=== PATIENT | female | born 1995 | race Caucasian/White ===

== ENCOUNTER 2018-01-01 20:31 | Emergency (ER) | payer OTHER ==
[~2018-01-01] VITALS: Ht 167.6 cm; Wt 60.7 kg
[2018-01-01 20:37] VITALS: TEMP 37; Ht 167.6 cm; Wt 60.7 kg
[2018-01-01] MEDS ORDERED: LISD40CA PO (21:13)
[2018-01-01] MEDS ORDERED: ALPR1TAB3 PO (21:14)
--- NOTE | 2018-01-01 21:14 | EMERGENCY ROOM VISIT NOTE ---
ED Visit Note First contact with patient: 20:46 CHIEF COMPLAINT: Possible right foot infection HPI: This 22-year-old female presents to ER with chief complaint that she thinks she might be getting an infection on the bottom of her heel again. The patient states that she had stepped on an earring in August and then in November her foot got infected. She has been dealing with this since that time. She has been seeing a watch inspector final movement in her hometown in [place]. She was in a walking shoe but was told last Sunday that she could start wearing regular shoes. The patient states today she saw some blood coming from the area and thought it could be infected. REVIEW OF SYSTEMS: 6 system review was performed and was negative unless stated otherwise in history of present illness. PMH: The patient is healthy; septoplasty SOCIAL HISTORY: Patient is a [employer] student. The patient admits to occasional alcohol and tobacco use. PHYSICAL EXAM: Vital Signs: Were reviewed reviewed Nurse's notes. GENERAL: 22- year-old female appears in no acute distress. MENTAL Status: Alert and oriented 3. RIGHT FOOT: On the plantar surface of the calcaneus there is softening of callused skin which appears to be loosening from the subdermal area. There is approximately a 1 cm opening in the callused area but there is new skin tissue covering the subdermal area underneath. There is no active bleeding. There is no signs of infection. EMERGENCY DEPARTMENT COURSE: The patient was evaluated. The patient was reassured that this is normal healing and that the remainder of the softening callus tissue may come off and the underneath tissue will be more tender. Recommend a heel pad in her shoe. Patient verbalized understanding and the patient was discharged home in stable condition. TREATMENT: Recommend wearing a heel pad in the right shoe until foot has completely healed. Also recommend using a pumice stone to remove callus tissue as it becomes loose. DIAGNOSIS: Right foot pain Vital Signs Date Time Temp Pulse Resp B/P (MAP) Pulse Ox O2 Delivery O2 Flow Rate FiO2 01/01/18 20:37 37.0 107 18 107/71 97 Room Air Departure Information Patient Instructions [facility]
[2018-01-01 21:15] VITALS: BP 120/68; PULSE 107; O2SAT 97
[2018-01-01] MEDS ORDERED: ZOLP5TAB PO (21:16)
== END 2018-01-01 21:30 | disposition home or self-care (01) ==
LOC: C.EDB 20:33 → C.EDA 21:30
DX: M79.671 Pain in right foot (principal); F17.200 Nicotine dependence, unspecified, uncomplicated